=== PATIENT | male | born 1990 | race Caucasian/White ===

== ENCOUNTER 2019-01-26 20:35 | Emergency (ER) | payer SELFPAY ==
[2019-01-26] MEDS ORDERED: Dexamethasone 4 mg/ml Vial ONE ×2 (22:49)
[2019-01-26] MEDS ORDERED: Sodium Chloride For Inhalation 0.9% 3 ML NEB ONE (23:03)
--- NOTE | 2019-01-26 23:05 | RAD ---
EXAM: Chest 2 views: HISTORY: Cough with flulike symptoms COMPARISON: None. FINDINGS: There is a normal-sized cardiomediastinal silhouette. There is no evidence of consolidation, mass, or pleural effusion. The bones are unremarkable. IMPRESSION: No evidence of acute cardiopulmonary disease
[2019-01-26] MEDS ORDERED: Ketorolac Tromethamine 30 MG/ML VIAL ONE (23:58)
== END 2019-01-27 00:25 | disposition home or self-care (01) ==
LOC: ERS 20:35
DX: B34.9 Viral infection, unspecified (principal)
CPT/HCPCS: 71046; 87804; 94640; 96372; J1100; J1885; J7620